=== PATIENT | female | born 1985 | race African-American/Black ===

== ENCOUNTER 2016-07-16 16:53 | Emergency (ER) ==
[2016-07-16 17:05] VITALS: BP 112/75; TEMP 98.1; BMI 22.6
--- NOTE | 2016-07-16 17:35 | ED.PDOC ---
General ED Provider: Dr. BEVERLY HERNÁNDEZ Chief Complaint: Rash Stated Complaint: rash on arms back Time Seen by Physician: 17:00 (seen at [facility] has not filled meds ) Mode of Arrival: Walk-In Information Source: Patient Exam Limitations: No limitations Primary Care Provider: ROMULO WESTBROOK Nursing and Triage Documentation Reviewed and Agree: Yes Skin Complaint Exam - Skin Rash/Itching Complaint/Exam Onset/Duration: 2 days Symptoms Are: Still present Initial Severity: Mild Current Severity: Mild Potential Exposures: Reports: Unknown Aggravating: Reports: None Alleviating: Reports: None Associated Signs and Symptoms: Denies: Difficulty breathing, Fever, Chills Related History: Similar episode Skin Findings: Present: Maculae Differential Diagnoses: Allergic Reaction, Contact Dermatitis, Eczema Review of Systems - Review Of Systems Constitutional: Reports: No symptoms Eyes: Reports: No symptoms Ears, Nose, Mouth, Throat: Reports: No symptoms Respiratory: Reports: No symptoms Cardiac: Reports: No symptoms GI: Reports: No symptoms : Reports: No symptoms Musculoskeletal: Reports: No symptoms Skin: Reports: Rash Neurological: Reports: No symptoms Endocrine: Reports: No symptoms Hematologic/Lymphatic: Reports: No symptoms All Other Systems: Reviewed and Negative Past Medical History - Past Medical History Previously Healthy: Yes Endocrine: Reports: None Cardiovascular: Reports: None Respiratory: Reports: None Hematological: Reports: None Gastrointestinal: Reports: None Genitourinary: Reports: None Neuro/Psych: Reports: None Musculoskeletal: Reports: None Cancer: Reports: None Last Menstrual Period: 06/30/16 - Surgical History General Surgical History: Reports: None - Family History Family History: Reports: None - Social History Smoking Status: Current every day smoker, Light tobacco smoker Hx Substance Use: No Alcohol Screening: Occasionally Physical Exam - Physical Exam Appearance: Well-appearing, No pain distress, Well-nourished Eyes: CODY, EOMI, Conjunctiva clear ENT: Ears normal, Nose normal, Oropharynx normal Respiratory: Airway patent, Breath sounds clear, Breath sounds equal, Respirations nonlabored Cardiovascular: RRR, Pulses normal, No rub, No murmur GI/: Soft, Nontender, No masses, Bowel sounds normal, No Organomegaly Musculoskeletal: Normal strength, ROM intact, No edema, No calf tenderness Skin: Warm, Dry, Normal color Neurological: Sensation intact, Motor intact, Reflexes intact, Cranial nerves intact, Alert, Oriented Psychiatric: Affect appropriate, Mood appropriate Critical Care Note - Critical Care Note Total Time (mins): 0 Course - Course Orders, Labs, Meds: Orders Category Date Time Status BLOOD CULTURE Stat LAB 07/16/16 17:24 Ordered CBC W/ AUTO DIFF Stat LAB 07/16/16 17:24 Ordered COMPREHENSIVE METABOLIC PANEL Stat LAB 07/16/16 17:24 Ordered SERUM Stat LAB 07/16/16 Ordered URINALYSIS C & S IF INDICATED Stat LAB 07/16/16 17:24 Uncollected Vital Signs: Temp Pulse Resp BP Pulse Ox 07/16/16 16:54 98.1 F 71 20 112/75 99 Departure - Departure Time of Disposition: 17:34 (refused [facility] , BLOOD CULTURE , CHEMISTRY RISKS DISCLOSED PRESENT OTM AND INGE) Disposition: HOME SELF-CARE Discharge Problem: Rash Instructions: Acute Rash (ED) Condition: Good Pt referred to PMD for follow-up: No Additional Instructions: Please call your Family Physician as soon as possible to schedule a follow-up appointment. Allergies/Adverse Reactions: Allergies No Known Allergies Allergy (Verified 07/16/16 17:06) Home Medications: Ambulatory Orders 1 [No Reported Medications] 12/24/13
== END 2016-07-16 17:50 | disposition home or self-care (01) ==
LOC: ED 16:53
DX: R21 Rash and other nonspecific skin eruption (principal); F17.210 Nicotine dependence, cigarettes, uncomplicated
CPT/HCPCS: 99283